=== PATIENT | female | born 1995 | race Caucasian/White ===

== ENCOUNTER 2025-04-22 13:25 | Emergency (ER) | payer SELFPAY ==
[~2025-04-22] VITALS: Ht 165.1 cm; Wt 79.4 kg
[2025-04-22 13:50] VITALS: TEMP 98.2
[2025-04-22] MEDS ORDERED: CYCLOBENZAPRINE10 MG PO (14:13)
[2025-04-22] MEDS: KETOROLAC TROMETHAMINE 60 MG/2 ML VIAL IM ONE (14:29)
[2025-04-22] MEDS: CYCLOBENZAPRINE HCL 10 MG TAB PO ONE (14:30)
[2025-04-22 14:57] VITALS: PULSE 64; RESP 18; O2SAT 99
[2025-04-22] MEDS ORDERED: NEOMYCIN/POLYMYX/BACITR OINT 0.9 GM PKT ONE (17:27)
== END 2025-04-22 14:59 | disposition home or self-care (01) ==
LOC: ER 13:32
DX: M54.6 Pain in thoracic spine (principal); M79.18 Myalgia, other site; Z33.1 Pregnant state, incidental
CPT/HCPCS: 99282; J1885